=== PATIENT | male | born 1980 | race Caucasian/White ===

== ENCOUNTER 2024-05-20 12:56 | Emergency (ER) | payer OTHER, SELFPAY ==
[2024-05-20 13:06] VITALS: BP 153/104
--- NOTE | 2024-05-20 14:20 | EDRN ---
Pt states he was lifting weights (dumbells) of 30 lbs and felt a pull and pain in sacral area of his back on Tuesday PM. Pt states his has full sensation but tingling in his legs. Pulses intact. Pt not able to move legs r/t pain in sacrum. pain lying
is 4/10 and 10+/10 w/ movement.
--- NOTE | 2024-05-20 14:45 | EDRN ---
Dr. Maguire in to see pt at this time.
--- NOTE | 2024-05-20 15:22 | ED.GENMED ---
History of Present Illness
General
Chief Complaint: Back Pain
Time Seen by Provider: 05/20/24 14:21
History of Present Illness
History of Present Illness:
Patient is a 43-year-old man with history of L4-L5 spinal stenosis presenting to the emergency department with back pain. Patient states that 2 days ago he pulled his back when he was lifting a dumbbell. He states that the pain is on his left back
that radiates down the leg. He does have history of sciatica. He does feel this is similar to his prior sciatica flares. He also notes diffuse lower back pain that occurred after the event. No falls. No direct trauma. No numbness tingling. No
saddle anesthesia. No urinary incontinence or retention. No spinal injections. No history of diabetes. He did take 400 mg Advil with some relief.
Past History
Past History
ED Past Medical History: Other (Low back pain, sciatica)
ED Past Surgical History: None
Social History
Tobacco: Non-smoker
Alcohol: Occasional
Personal:
Living: with family
Employment: Employed
Family History
Family History: Other (Noncontributory)
Phy Exam
Physical Exam
Physical Exam:
GENERAL: in no acute distress
HEENT: normocephalic, extraocular movements intact, moist oral mucosa
NECK: normal inspection
Back: Left lower tenderness to palpation, positive straight leg raise to the left leg
RESPIRATORY: no respiratory distress, clear to auscultation bilaterally
CARDIOVASCULAR: regular rate and rhythm
ABDOMEN/: soft, non-distended, non-tender to palpation, no rebound or guarding
EXTREMITIES: non-tender, no edema/swelling
NEUROLOGIC: awake and alert, moves all extremities, no motor or sensory deficits
SKIN: warm
Course
Orders/Labs/Results
Orders:
Orders
05/20/24 15:10
Acetaminophen [Tylenol] 1,000 mg PO NOW STA
Ketorolac [Toradol] 15 mg IM NOW STA
Prednisone [Deltasone] 50 mg PO NOW STA
Vital Signs
Initial and Last Documented VS:
Initial Vital Signs
Temp Pulse Resp BP Pulse Ox
98.3 F 82 16 153/104 96
05/20/24 13:06 05/20/24 13:06 05/20/24 13:06 05/20/24 13:06 05/20/24 13:06
Last Documented Vital Signs
Temp Pulse Resp BP Pulse Ox
98.3 F 69 16 148/89 97
05/20/24 13:06 05/20/24 15:39 05/20/24 15:39 05/20/24 15:39 05/20/24 15:39
MDM/Problems Addressed
Differential Diagnosis Includes:
Patient is a 43-year-old man presenting to the emergency department with left lower back pain that radiates down his leg after pulling his back while weightlifting. MSK pain most likely with a component of sciatica given the radicular pain. Low
concern for acute life threatening etiology. Patient does not have red flag s/s for cauda equina syndrome, osteomylitis, discitis, epidural abscess. History and exam not consisitent with traumatic fracture or pathologic fracture. Hx and exam of low
concern for renal stone or pyelo and not consistent with atoric catastrophe. Will pain control with Toradol Tylenol. Will give steroids for the sciatica. Discussed imaging and will hold off at this time.
*Critical Care Note
Total Time (30-74mins, 75-104mins- exclusive of procedures): Not Applicable
Update Note
Update Note:
On reevaluation patient's pain has significantly improved. He was ambulatory in the bathroom. Will discharge at this time. Patient educated on alternating Tylenol Motrin and the role of steroids for the neuropathic pain. Patient advised physical
therapy and stretching exercises. Strict return precautions given.
ED Attending Note
-
Portions of this chart may have been created with voice recognition software.� Occasional wrong word or��sound alike� substitutions may have occurred due to the inherent limitations of voice recognition software.
Discharge Plan
Departure
Patient Disposition: Home (Routine Discharge)
Date of Disposition: 05/20/24
Time of Disposition: 16:23
Patient with high blood pressure during this ER visit?: Yes
Discharge Problem:
Back pain, Sciatica
Instructions: Low Back Pain (DC), Sciatica (DC)
Prescriptions:
New
prednisone 20 mg tablet
40 mg PO DAILY 4 Days Qty: 8 0RF
Rx Instructions:
start tomorrow 05/31
No Action
cyclobenzaprine 10 MG tablet
10 mg PO TIDPRN PRN (Reason: muscle spasm) Qty: 30 0RF
hydrocodone-acetaminophen 1 EACH tablet
1 ea PO QIDPRN PRN (Reason: pain) Qty: 20 0RF
prednisone 10 MG tablet
10 mg PO .TAPER Qty: 30 0RF
Rx Instructions:
Take 40mg daily x3days, 30mg daily x3days,
20mg daily x3days, 10mg daily x3days.
Referrals:
NONE,* [Family Provider] -
Activity Restrictions/Additional Instructions:
The exact cause of your back pain is unclear but it is likely musculoskeletal/mechanical low back pain that usually improves with conservative treatment after a few weeks.
You can take ibuprofen 400 mg (2 rgcl-eiq-jkdzazu tablets) every 4 hours or 600 mg (3 rurh-zpx-toucspd tablets) every 6 hours as needed for pain.
You can take Tylenol 1000 mg (3 regular strength tablets or 2 extra strength tablets) every 6 hours as needed for pain up to 3 doses per day.
Wean yourself off of the ibuprofen as soon as your pain is tolerable. This medication, if used long-term, can have negative effects on the kidneys, heart and stomach. Tylenol is the safest medication but does not have the anti-inflammatory component.
Apply a heating pad 15-20 minutes at a time every few hours. Make sure not to sleep with the heating pad on as it can burn your skin. You may also try ice every few hours -- make sure not to apply an icepack directly to the skin. You can alternate
the two as well.
You can apply a lidocaine patch to the painful area every 8 hours as well.
I did also prescribe you steroids as you are having some nerve pain as well. Please start taking it tomorrow as we gave your first dose here today.
Return to the emergency department if you develop inability to urinate, are unable to hold your stool, have numbness when your wipe yourself after using the bathroom, develop new weakness in the legs, develop a fever, if you have worsening pain or
if you have any increasing concerns.
If your pain is not improving over the next 1-2 weeks, please follow-up with your primary care doctor.
Interventions
Interventions:
*Risk Screen - Suicide Last Done: 05/20/24 13:06
*General Assessment Last Done: 05/20/24 13:06
*Neglect/Abuse Screening Last Done: 05/20/24 13:09
*ED COVID-19 Vaccine History Last Done: 05/20/24 13:06
ED-Musculoskeletal Assessment Last Done: 05/20/24 15:39
Discharge Date and Time
Print Language: BULGARIAN
[2024-05-20] MEDS: TYLENOL 1000 MG PO (15:32)
[2024-05-20] MEDS: DELTASONE 50 MG PO (15:33)
[2024-05-20] MEDS: TORADOL 15 MG IM (15:34)
[2024-05-20 15:39] VITALS: BP 148/89; BMI 39.6
--- NOTE | 2024-05-20 16:06 | EDRN ---
Pt OOB in w/c to BR and was able to walk into BR and void and come out getting in and out of w/c. Pt states lying pain is 2/10 now and w/ moving 6/10 and pt feels like his hips are 'out' he says.
[2024-05-20 17:18] VITALS: BP 164/103
== END 2024-05-20 17:21 | disposition home or self-care (01) ==
LOC: EMR 12:56
PROVIDERS: EMERGENCY PHYSICIAN Student in an Organized Health Care Education/Training Program
DX: M54.42 Lumbago with sciatica, left side (principal)
CPT/HCPCS: 96372; 99284

== ENCOUNTER 2024-05-29 10:19 | Emergency (ER) | payer OTHER, SELFPAY ==
[2024-05-29 10:20] VITALS: BP 158/112
--- NOTE | 2024-05-29 11:17 | ED.GENMED ---
History of Present Illness
General
Chief Complaint: Back Pain
Source: patient
Exam Limitations: none
Time Seen by Provider: 05/29/24 10:57
Nursing documentation reviewed up to this point in time: agreed with
History of Present Illness
History of Present Illness:
Patient is a 43-year-old male presenting to the emergency department worsening lower back pain, now radiating to right leg. Patient seen in ED 05/20/24 after Acute onset lower back pain low lifting weights. He was treated for suspected lower
back strain with NSAIDs, steroids. He states symptoms initially improved although over the past 2 days it began to worsen. He now states pain is now radiating into his right leg. Pain is definitely worse with movement. He denies any
bowel/bladder incontinence, or groin paresthesias. No weakness or numbness in lower extremities. No fevers, chills, or shortness of breath.
No known inciting event or injury that may have worsened pain.
Past History
Past History
ED Past Medical History: Other (Low back pain, sciatica)
ED Past Surgical History: None
Social History
Tobacco: Non-smoker
Alcohol: Occasional
Personal:
Living: with family
Employment: Employed
Family History
Family History: Other (Noncontributory)
Review of Systems
Review of Systems
Allergies reviewed?: Yes
All Other Systems: ROS reviewed and negative except as documented in HPI and ROS
Phy Exam
Physical Exam
Physical Exam:
Vitals: Hypertensive, otherwise vital signs stable. Afebrile
General: Patient is well-appearing at rest although moderately uncomfortable with movement due to pain.
Skin: Warm and dry, no rashes or lesions
Head: Normocephalic, atraumatic
Eyes: Sclera nonicteric.
Throat: Protecting airway
Neck: Normal ROM
Cardiac: Regular rate and rhythm, no murmurs.
Pulm: Normal respiratory effort, no wheezes, rales, rhonchi heard on exam.
Abdomen: No abdominal tenderness.
Back: Right lower tenderness palpation. Positive straight leg raise to the left leg.
Extremities: No evidence of cyanosis or edema. Strength 5/5 in upper and lower extremities.
Neuro: Awake and alert. Moving all extremities. No motor or sensory deficits.
Psychiatric: Normal affect.
Course
Orders/Labs/Results
Orders:
Orders
05/29/24 11:13
Ketorolac [Toradol] 15 mg IM NOW STA
Lidocaine [Lidocaine 4% Patch] 1 patch TOPICAL NOW STA
Apply Lidocaine patch(s) to:: Right low back
Lumbar Spine, 2 or 3 View [CR Lumbar Spine 2 Or 3 Views] Urgent
Comment:
Reason For Exam: low back pain into right leg
05/29/24 11:14
diazePAM [Valium Injection] 2 mg IM NOW STA
Vital Signs
Initial and Last Documented VS:
Initial Vital Signs
Temp Pulse Resp BP Pulse Ox
97.9 F 87 18 158/112 96
05/29/24 10:20 05/29/24 10:20 05/29/24 10:20 05/29/24 10:20 05/29/24 10:20
Last Documented Vital Signs
Temp Pulse Resp BP Pulse Ox
97.9 F 77 16 160/102 98
05/29/24 10:20 05/29/24 13:44 05/29/24 13:44 05/29/24 13:44 05/29/24 13:44
MDM/Problems Addressed
Differential Diagnosis Includes:
Not limited to: Muscle strain, muscle spasm, sciatica, spondylolysis, spinal stenosis, etc.
MDM/Problems Addressed:
Patient is a 43-year-old male presenting with worsening lower back pain now radiating into right leg. Brief improvement after course of steroids although pain returned. Pain worse with movement. No fevers, chills, or other neurologic symptoms.
Patient hypertensive, likely secondary to pain. Otherwise vital signs stable�she is afebrile. Physical exam as above. Ultimately�symptoms most consistent with musculoskeletal etiology with component of sciatica given radicular pain. Low concern
for acute life threatening etiology. Patient does not have red flag s/s for cauda equina syndrome, osteomylitis, discitis, epidural abscess. History and exam not consisitent with traumatic fracture or pathologic fracture, although will obtain lumbar
spine x-ray. Hx and exam of low concern for renal stone or pyelo and not consistent with atoric catastrophe. Will treat with IM Toradol, lidocaine patch, and IM Valium. Will closely monitor and reassess.
Chronic conditions affecting care:
N/A
Acute Exacerbation and/or Progression of Chronic Illness:
N/A
*Radiology
Radiology exam reviewed: preliminary read by ED provider (Lumbar spine x-ray reviewed by me-no acute fracture) and radiology read reviewed
*Pulse Oximetry
Patient hypoxic: no
*EKG
Interpreted by ED Provider?: NA
*Supervisor Machine Setter Interpretation
Rate: Supervisor Machine Setter- N/A
*Critical Care Note
Total Time (30-74mins, 75-104mins- exclusive of procedures): Not Applicable
Data Reviewed
Review of Other/Old Records Reveals: Discharge Summary (Discharge summary from 05/20/2024 suspected MSK back pain)
Source: previous hospital records
Update Note
Update Note:
Update 12:20 PM: Lumbar spine x-ray without acute abnormalities. In to reassess patient at bedside who reports improvement in symptoms. He is ambulatory. Blood pressure elevated although mildly improved�she does report history of hypertension,
advised to follow with PCP. Feel patient stable for discharge home. Will send longer steroid taper course and few days of p.o. Valium. Strict return discussed. He will follow-up with orthopedics for further management.
ED Attending Note
-
Portions of this chart may have been created with voice recognition software.� Occasional wrong word or��sound alike� substitutions may have occurred due to the inherent limitations of voice recognition software.
Discharge Plan
Departure
Patient Disposition: Home (Routine Discharge)
Date of Disposition: 05/29/24
Time of Disposition: 13:23
Patient with high blood pressure during this ER visit?: Yes
Condition: Good
Discharge Problem:
Back pain
Instructions: Low Back Pain (DC), Sciatica (DC), BLOOD PRESSURE
Prescriptions:
New
prednisone 10 mg Tablet
See Rx Instructions .ROUTE .COMPLEX Qty: 30 0RF
Rx Instructions:
Take By Mouth:
40 mg daily x3 days, 30 mg daily x3 days,
20 mg daily x3 days, 10 mg daily x3 days.
diazepam 5 mg tablet
5 mg PO HS PRN (Reason: muscle spasm) Qty: 7 0RF
No Action
cyclobenzaprine 10 MG tablet
10 mg PO TIDPRN PRN (Reason: muscle spasm) Qty: 30 0RF
hydrocodone-acetaminophen 1 EACH tablet
1 ea PO QIDPRN PRN (Reason: pain) Qty: 20 0RF
prednisone 10 MG tablet
10 mg PO .TAPER Qty: 30 0RF
Rx Instructions:
Take 40mg daily x3days, 30mg daily x3days,
20mg daily x3days, 10mg daily x3days.
prednisone 20 mg tablet
40 mg PO DAILY 4 Days Qty: 8 0RF
Rx Instructions:
start tomorrow 05/31
Referrals:
Hira Alejo MD [Family Provider] - Follow up in 5-7 days
Stand Alone Forms: Return to Work
Activity Restrictions/Additional Instructions:
RETURN TO THE EMERGENCY DEPARTMENT WITH ANY FEVER, INTRACTABLE PAIN, NUMBNESS/TINGLING EXTREMITIES, WEAKNESS IN EXTREMITIES, LOSS OF BOWEL/BLADDER CONTROL, NUMBNESS IN GROIN, WORSENING IN CURRENT SYMPTOMS, OR ANY OTHER CONCERNS
-As discussed�your x-ray showed no evidence of acute fracture or dislocation. The cause of your back pain is unclear however suspect musculoskeletal/mechanical low back pain which should improve with conservative treatment after a few weeks.
- You can take ibuprofen 400 mg (2 tuba-omm-kgwyjee tablets) every 4 hours or 600 mg (3 ocwr-rtw-csxhyum tablets) every 6 hours as needed for pain.
- You can take Tylenol 1000 mg (3 regular strength tablets or 2 extra strength tablets) every 6 hours as needed for pain up to 3 doses per day.
- I sent a prescription for Valium that you can take at night prior to bed for muscle spasm. This may cause drowsiness you should not take prior to driving. Do not take this in conjunction with cyclobenzaprine.
- I did also prescribe you steroids as you are having some nerve pain as well. Please start this medication today.
-Follow-up with primary care for further evaluation/management to ensure that symptoms are improving
Monitor your symptoms closely and return to the emergency department any acute worsening/new symptoms or any other concerns
Interventions
Interventions:
*Risk Screen - Suicide Last Done: 05/29/24 10:20
*General Assessment Last Done: 05/29/24 10:20
*Nursing Disposition Last Done: 05/29/24 13:44
ED-Musculoskeletal Assessment Last Done: 05/29/24 11:36
Discharge Date and Time
Discharge Date/Time: 05/29/24 13:45
Print Language: MAORI
[2024-05-29] MEDS: VALIUM INJECTION 2 MG IM (11:24)
[2024-05-29] MEDS: LIDOCAINE 4% PATCH 1 PATCH TOPICAL (11:24)
[2024-05-29] MEDS: TORADOL 15 MG IM (11:24)
[2024-05-29 13:44] VITALS: BP 160/102
== END 2024-05-29 13:45 | disposition home or self-care (01) ==
LOC: EMR 10:19
PROVIDERS: EMERGENCY PHYSICIAN Emergency Medicine; FAMILY PHYSICIAN Family Medicine
DX: M54.50 Low back pain, unspecified (principal); M79.604 Pain in right leg
CPT/HCPCS: 96372; 99284; 72100